=== PATIENT | female | born 1945 | race Caucasian/White ===

== ENCOUNTER → 2019-04-22 11:00 | Outpatient (CLI) | payer OTHER, SELFPAY ==
[2019-04-22 12:34] LABS: Thyroid Stimulating Hormone 1.15 uIU/mL (0.47-4.68)
== END ==
PROVIDERS: Family Provider Family Medicine; PCP Family Medicine; Visit Provider Family Medicine
DX: E03.9 Hypothyroidism, unspecified (principal)
CPT/HCPCS: 36415; 84443

== ENCOUNTER 2019-09-27 11:16 | Emergency (ER) | payer OTHER, SELFPAY ==
[2019-09-27 11:20] VITALS: BP 160/91; PULSE 102; RESP 20; TEMP 36.7; O2SAT 97; BMI 30.9
--- NOTE | 2019-09-27 12:23 | ED.EPISTAXIS ---
HPI - Epistaxis <CHRISTIANO Gan-BC - Last Filed: 09/27/19 19:08> General Chief complaint: Nasal Problem Stated complaint: bloody nose/asa 81mg daily/started last night Time Seen by Provider: 09/27/19 11:39 Source: patient and family Mode of arrival: Ambulatory Limitations: no limitations History of Present Illness HPI Narrative: The patient is a 73-year-old female nonsmoker with history of hypothyroid and sleep apnea who presents with a chief complaint of bloody nose last night. She states that she blood last night between 7:00 p.m. and midnight and had a constant trickle out of her right there. She states she is not actively bleeding at this point time. She takes 1 baby aspirin per day. She denies any falls or trauma. She denies any injury to her nose. She states in order to help stop the nosebleed last night, she placed ice on the back of her head. She also said forward. She did not hold pressure. She presents today because she is concerned about the blood clot at the base of her left nare, and that she is worried she will start bleeding if it comes off again. She denies any lightheadedness or dizziness, is not overly concerned about blood loss. Related Data Home Medications Medication Instructions Recorded Confirmed levothyroxine [Synthroid] 125 mcg PO DAILY 09/27/19 09/27/19 Allergies Allergy/AdvReac Type Severity Reaction Status Date / Time amoxicillin [AMOXICILLIN] Allergy Intermediate RASH Unverified 02/14/18 13:01 nitrofurantoin Allergy Unknown HIVES Unverified 02/14/18 13:01 [NITROFURANTOIN] Penicillins [PENICILLINS] Allergy Unknown Unverified 02/14/18 13:01 Review of Systems <CHRISTIANO Gan-BC - Last Filed: 09/27/19 19:08> Review of Systems Narrative: GENERAL: Denies chills, fatigue, malaise, fever, sweats. HEENT: See HPI RESPIRATORY: Denies dyspnea, cough, wheezing, hemoptysis, sputum. CARDIOVASCULAR: Denies chest pain, palpitations, orthopnea, edema, GASTROINTESTINAL: Denies nausea, vomiting, abdominal pain, diarrhea, constipation, melena. : Denies dysuria, frequency, incontinence, hematuria, urinary retention. MUSCULOSKELETAL: denies weakness, joint pain, or bony pain SKIN: Denies rash, skin lesions, or other NEUROLOGIC: Denies weakness, headache, numbness, change in speech, confusion, seizures, incoordination. PSYCHIATRIC: No concerning psychosocial issues. 12 point review of systems is negative except for those stated above Exam <JOEY Gan - Last Filed: 09/27/19 19:08> Narrative Exam Narrative: GENERAL: This is a well-nourished, well-developed patient, in no acute distress HEAD: Atraumatic. Normocephalic. No temporal or scalp tenderness. EYES: Pupils equal round and reactive. Extraocular motions intact. No scleral icterus. No injection or drainage. ENT: Nose with blood clot in left ear, dried blood in right interview, purulent drainage or septal hematoma. Throat without erythema, tonsillar hypertrophy or exudate. Uvula midline. Airway patent. No evidence of bleeding in back of throat NECK: Trachea midline. No JVD or lymphadenopathy. Supple, nontender, no meningeal signs. CARDIOVASCULAR: Regular rate and rhythm RESPIRATORY: No cough. No increased respiratory effort. No accessory muscle use. EXTREMITIES: No clubbing, cyanosis, or edema. No joint tenderness, effusion, or edema noted. BACK: Nontender without deformity or crepitance. No flank tenderness. NEURO: AOx3. SKIN: No rash or erythema. Initial Vital Signs Initial Vital Signs: Vital Signs Temperature 98.1 F 09/27/19 11:20 Pulse Rate 102 H 09/27/19 11:20 Respiratory Rate 20 09/27/19 11:20 Blood Pressure 160/91 H 09/27/19 11:20 Pulse Oximetry 97 09/27/19 11:20 <Jazzy Diana DO - Last Filed: 09/28/19 07:22> Initial Vital Signs Initial Vital Signs: Vital Signs Temperature 98.1 F 09/27/19 11:20 Pulse Rate 102 H 09/27/19 11:20 Respiratory Rate 20 09/27/19 11:20 Blood Pressure 160/91 H 09/27/19 11:20 Pulse Oximetry 97 09/27/19 11:20 Course <JOEY Gan - Last Filed: 09/27/19 19:08> Vital Signs Vital signs: Vital Signs - 8 hr 09/27/19 11:20 09/27/19 13:44 Temperature 98.1 F Pulse Rate 102 H 78 Respiratory Rate 20 16 Blood Pressure 160/91 H Blood Pressure [Left Arm] 152/83 H Pulse Oximetry 97 94 <Jazzy Diana DO - Last Filed: 09/28/19 07:22> Vital Signs Vital signs: Vital Signs - 8 hr 09/27/19 11:20 09/27/19 13:44 Temperature 98.1 F Pulse Rate 102 H 78 Respiratory Rate 20 16 Blood Pressure 160/91 H Blood Pressure [Left Arm] 152/83 H Pulse Oximetry 97 94 MDM - Epistaxis <HALEY GanP-BC - Last Filed: 09/27/19 19:08> MDM Narrative Medical decision making narrative: The patient is a 73-year-old female who takes 1 baby aspirin per day presents to the emergency department for chief complaint of a bloody nose last night. She states that she has a clot on her left ear which is evident. She has no obvious bleeding in the emergency department. She is placed a nasal clamp, and I cleaned the base of her nose. She had no active bleeding without the clamp afterwards. I discussed at length the use of the clamp, using humidifier at night, following up with primary care provider. Discussed at length coming back to emergency department for any acute concerns, significant rebleeding etc. Patient has been have no questions or concerns upon discharge and state understanding of return precautions as well as follow-up care. Patient did not want to check her blood work today. Discharge Plan Departure Patient Disposition: Home Clinical Impression: Epistaxis Discharge Date/Time: 09/27/19 14:04 Instructions: DI for Nosebleed Activity Restrictions/Additional Instructions: Please monitor for recurrence nose bleeds. I suggest that you do not sneeze, blowing her nose etc as this can dislodge the clot. Please bring home The nose clamp. Please come back to emergency department for any acute concerns Please follow up with primary care provider Prescriptions: No Action levothyroxine [Synthroid] 125 MCG tablet 125 mcg PO DAILY RF: 0 Referrals: Roly Reinoso MD [Primary Care Provider] -
[2019-09-27 13:44] VITALS: BP 152/83; PULSE 78; RESP 16; O2SAT 94
== END 2019-09-27 14:04 | disposition home or self-care (01) ==
PROVIDERS: Emergency Provider Nurse Practitioner Family; Family Provider Family Medicine; PCP Family Medicine
DX: R04.0 Epistaxis (principal)
CPT/HCPCS: 99282

== ENCOUNTER → 2019-12-02 11:00 | Outpatient (CLI) | payer MEDICARE, SELFPAY ==
[2019-12-02 12:50] LABS: Thyroid Stimulating Hormone 1.19 uIU/mL (0.47-4.68)
== END ==
PROVIDERS: PCP Family Medicine; Visit Provider Family Medicine
DX: E03.9 Hypothyroidism, unspecified (principal)
CPT/HCPCS: 36415; 84443

== ENCOUNTER → 2020-12-02 10:44 | Outpatient (CLI) | payer MEDICARE, SELFPAY ==
[2020-12-02 11:46] LABS: Add Manual Diff / Slide Review NO; Basophils Absolute Auto 100 /uL (0-100); Eosinophils Absolute Auto 200 /uL (0-450); Eosinophils Percent Auto 2.6 % (2-4); Hematocrit 46.6 % (36-46); Hemoglobin 14.9 g/dL (12.0-16.0); Lymphocytes Absolute Auto 2900 /uL (1100-4500); Lymphocytes Percent Auto 41.1 % (25-40); Mean Corpuscular HGB Conc 31.9 % (30-36); Mean Corpuscular Hemoglobin 29.2 PG (26-34); Mean Corpuscular Volume 91.3 fL (80-100); Monocytes Absolute Auto 700 /uL (0-900); Monocytes Percent Auto 9.8 % (3-14); Neutrophils Absolute Auto 3200 /uL (1500-7000); Neutrophils Percent Auto 45.5 % (50-75); Platelet Count 309 X10^3/uL (150-400); Red Cell Distribution Width 14.1 % (11.6-14.8)
[2020-12-02 12:42] LABS: BUN Creatinine Ratio 18.6 (6-22); Blood Urea Nitrogen 11 mg/dL (7-17); Calcium 9.5 mg/dL (8.4-10.2); Carbon Dioxide 30 mmol/L (22-32); Chloride 102 mmol/L (98-107); Estimated Glomerular Filt Rate > 60.0 mL/min (>60); Glucose 98 mg/dL (80-110); HEMOLYSIS < 15 (0-50); Potassium 4.4 mmol/L (3.4-5.1); Sodium 137 mmol/L (137-145)
[2020-12-02 13:10] LABS: Thyroid Stimulating Hormone 1.26 uIU/mL (0.47-4.68)
== END ==
PROVIDERS: PCP Family Medicine; Referring Provider Family Medicine; Visit Provider Family Medicine
DX: E03.9 Hypothyroidism, unspecified (principal); I10 Essential (primary) hypertension; D75.1 Secondary polycythemia
CPT/HCPCS: 36415; 80048; 84443; 85025

== ENCOUNTER → 2021-12-09 13:03 | Outpatient (CLI) | payer MEDICARE, SELFPAY ==
[2021-12-09 14:03] LABS: Add Manual Diff / Slide Review NO; Basophils Absolute Auto 100 /uL (0-100); Basophils Percent Auto 1.1 % (0-2); Eosinophils Absolute Auto 100 /uL (0-450); Eosinophils Percent Auto 1.6 % (2-4); Hematocrit 42.3 % (36-46); Hemoglobin 14.5 g/dL (12.0-16.0); Lymphocytes Absolute Auto 1900 /uL (1100-4500); Lymphocytes Percent Auto 35.5 % (25-40); Mean Corpuscular HGB Conc 34.3 % (30-36); Mean Corpuscular Hemoglobin 30.9 PG (26-34); Mean Corpuscular Volume 90.2 fL (80-100); Monocytes Absolute Auto 500 /uL (0-900); Monocytes Percent Auto 9.9 % (3-14); Neutrophils Absolute Auto 2800 /uL (1500-7000); Neutrophils Percent Auto 51.9 % (50-75); Platelet Count 300 X10^3/uL (150-400); Red Blood Cell Count 4.69 X10^6/uL (4.0-5.2); Red Cell Distribution Width 14.1 % (11.6-14.8); White Blood Cell Count 5.3 X10^3/uL (4.5-11.0)
[2021-12-09 14:54] LABS: Ferritin 47 ng/mL (11-264)
[2021-12-10 18:46] LABS: Erythropoietin 7.5 mIU/mL (2.6-18.5)
== END ==
PROVIDERS: PCP Family Medicine; Referring Provider Family Medicine; Visit Provider Family Medicine
DX: D75.1 Secondary polycythemia (principal)
CPT/HCPCS: 36415; 82668; 82728; 85025